=== PATIENT | male | born 1975 | race Caucasian/White ===

== ENCOUNTER 2016-05-28 19:09 | Emergency (ER) | payer BC, OTHER ==
[2016-05-28 19:17] VITALS: BP 115/64; PULSE 71; TEMP 98; BMI 25.1
[2016-05-28] MEDS ORDERED: IBUPROFEN 400 MG TABLET (FP) PO ONE (19:44)
--- NOTE | 2016-05-28 19:45 | PDOC ---
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 Pt was trying to cut a tile with a tilesetter when he cut the distal tip of the right thumb. Td Vaccination: Yes TDAP Vaccination: Yes Immunization Up to Date: Yes <Zaki Salas - Last Filed: 05/28/16 20:01> <Chad Henriquez - Last Filed: 05/29/16 05:40> - General Chief Complaint: Laceration Stated Complaint: CUT RIGHT THUMB WITH NEMATOLOGIST Time Seen by Provider: 05/28/16 19:43 Past History <Zaki Salas - Last Filed: 05/28/16 20:01> - Past Medical History Other medical history: DENIES - Immunization History Td Vaccination: Yes TDAP Vaccination: Yes Immunization Up to Date: Yes - Psycho/Social/Smoking Cessation Hx Anxiety: No Suicidal Ideation: No Smoking Status: No Smoking History: Former smoker Years of Tobacco Use: 10 Have you smoked in the past 12 months: No Number of Cigarettes Smoked Daily: 0 Cigars Per Day: 0 Information on smoking cessation initiated: No 'Breaking Loose' booklet given: 04/07/13 Hx Alcohol Use: No Drug/Substance Use Hx: No Substance Use Type: None <Chad Henriquez - Last Filed: 05/29/16 05:40> - Past Medical History Allergies/Adverse Reactions: Allergies Allergy/AdvReac Type Severity Reaction Status Date / Time No Known Allergies Allergy Verified 05/28/16 19:11 Home Medications: Ambulatory Orders NK [No Known Home Medication] 05/28/16 Review of Systems - Review of Systems Able to Perform ROS?: Yes Comments:: 05/28/16 20:02 GENERAL/CONSTITUTIONAL: No fever or chills. No weakness. HEAD, EYES, EARS, NOSE AND THROAT: No change in vision. No ear pain or discharge. No sore throat. CARDIOVASCULAR: No chest pain or shortness of breath. RESPIRATORY: No cough, wheezing, or hemoptysis. GASTROINTESTINAL: No nausea, vomiting, diarrhea or constipation. GENITOURINARY: No dysuria, frequency, or change in urination. MUSCULOSKELETAL: No joint or muscle swelling or pain. No neck or back pain. SKIN: laceration to distal tip of right thumb. NEUROLOGIC: No headache, vertigo, loss of consciousness, or change in strength/ sensation. ENDOCRINE: No increased thirst. No abnormal weight change. HEMATOLOGIC/LYMPHATIC: No anemia, easy bleeding, or history of blood clots. ALLERGIC/IMMUNOLOGIC: No hives or skin allergy. <Zaki Salas - Last Filed: 05/28/16 20:01> *Physical Exam - Vital Signs Last Vital Signs Temp Pulse Resp BP Pulse Ox 98 F 71 16 115/64 100 05/28/16 19:13 05/28/16 19:13 05/28/16 19:13 05/28/16 19:13 05/28/16 19:13 - Physical Exam Comments: 05/28/16 20:02 GENERAL: Awake, alert, and fully oriented, in no acute distress HEAD: No signs of trauma EYES: PERRLA, EOMI, sclera anicteric, conjunctiva clear ENT: Auricles normal inspection, hearing grossly normal, nares patent, oropharynx clear without exudates. Moist mucosa NECK: Normal ROM, supple, no lymphadenopathy, JVD, or masses LUNGS: Breath sounds equal, clear to auscultation bilaterally. No wheezes, and no crackles HEART: Regular rate and rhythm, normal S1 and S2, no murmurs, rubs or gallops ABDOMEN: Soft, nontender, normoactive bowel sounds. No guarding, no rebound. No masses EXTREMITIES: Normal range of motion, no edema. No clubbing or cyanosis. No cords, erythema, or tenderness NEUROLOGICAL: Cranial nerves II through XII grossly intact. Normal speech, normal gait SKIN: 5 mm laceration to the distal tip of the right thumb. Warm, Dry, normal turgor. <Zaki Salas - Last Filed: 05/28/16 20:01> - Vital Signs Last Vital Signs Temp Pulse Resp BP Pulse Ox 98 F 71 16 115/64 100 05/28/16 19:13 05/28/16 19:13 05/28/16 19:13 05/28/16 19:13 05/28/16 19:13 <Chad Henriquez - Last Filed: 05/29/16 05:40> Medical Decision Making - Medical Decision Making 05/29/16 05:40 wounds anesthetized copius irrigation 2 5-0 sutures placed though unable to achieve complete hemostasis due to missing skin local wound care <Chad Henriquez - Last Filed: 05/29/16 05:40> *DC/Admit/Observation/Transfer - Attestations Scribe Attestion: 05/28/16 20:03 Documentation prepared by Zaki Salas, acting as center medical and lab director for Chad Henriquez MD. <Zaki Salas - Last Filed: 05/28/16 20:01> <Chad Henriquez - Last Filed: 05/29/16 05:40> Diagnosis at time of Disposition: Laceration - Discharge Dispostion Disposition: HOME Condition at time of disposition: Stable - Patient Instructions Printed Discharge Instructions: DI for Laceration Repair Additional Instructions: Stitches out in 7 days
== END 2016-05-28 20:13 | disposition home or self-care (01) ==
LOC: FER 19:09
PROC: 0HQGXZZ Repair Left Hand Skin, External Approach (ICD-10-PCS; principal; 2016-05-28)
DX: S61.011A Laceration without foreign body of right thumb without damage to nail, initial encounter (principal); W26.0XXA Contact with knife, initial encounter; Y93.89 Activity, other specified; Y92.9 Unspecified place or not applicable; Y99.0 Civilian activity done for income or pay; Z87.891 Personal history of nicotine dependence
CPT/HCPCS: 99281-25

== ENCOUNTER 2017-06-18 23:53 | Emergency (ER) | payer OTHER ==
--- NOTE | 2017-06-19 00:40 | PDOC ---
History of Present Illness - General Chief Complaint: Back Pain Stated Complaint: BACK INJURY ([employer]) Time Seen by Provider: 06/19/17 00:27 History Source: Patient Exam Limitations: No Limitations - History of Present Illness Initial Comments: This is a 41 YOM with h/o prior back strain/sprain who presents with work- related back injury. 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 He has moderate sharp and spasming pain since this incident at about 11:30 pm, it is non-radiating, it worsens with movement and walking, and he has not taken any medications for this pain. He otherwise did not fall, run into anything, or otherwise injure himself. He denies numbness, tingling, focal weakness, abdominal pain, chest pain, SOB, neck pain, headache, pain radiating down his leg(s), or other symptoms. He has no medication allergies and will be driving himself home tonight. Past History - Past Medical History Allergies/Adverse Reactions: Allergies Allergy/AdvReac Type Severity Reaction Status Date / Time No Known Allergies Allergy Verified 06/19/17 00:19 Home Medications: Ambulatory Orders Methocarbamol [Robaxin-750] 750 mg PO BID #20 tablet 06/19/17 - Immunization History Td Vaccination: Yes TDAP Vaccination: Yes Immunization Up to Date: Yes - Suicide/Smoking/Psychosocial Hx Smoking Status: No Smoking History: Never smoked Years of Tobacco Use: 10 Have you smoked in the past 12 months: No Number of Cigarettes Smoked Daily: 0 Cigars Per Day: 0 Information on smoking cessation initiated: No 'Breaking Loose' booklet given: 04/07/13 Hx Alcohol Use: No Drug/Substance Use Hx: No Substance Use Type: None Review of Systems - Review of Systems Able to Perform ROS?: Yes Constitutional: No: Chills, Fever, Unexplained wgt Loss HEENTM: No: Nose Congestion, Throat Pain Respiratory: No: Cough, Shortness of Breath Cardiac (ROS): No: Chest Pain, Palpitations ABD/GI: No: Constipated, Diarrhea, Nausea, Vomiting : No: Burning, Dysuria Musculoskeletal: Yes: Back Pain. 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 No: Apparent Distress HEENT: positive: EOMI, BISHOP, Normal ENT Inspection, Normal Voice, Hearing Grossly Normal. negative: Scleral Icterus (R), Scleral Icterus (L), Nasal Congestion Neck: positive: Trachea midline, Supple. negative: Tender, Rigid Respiratory/Chest: positive: Lungs Clear, Normal Breath Sounds. negative: Respiratory Distress, Crackles, Rhonchi, Stridor, Wheezing Cardiovascular: positive: Regular Rhythm, Regular Rate, S1, S2. negative: Edema , JVD, Murmur Gastrointestinal/Abdominal: positive: Soft. negative: Tender, Organomegaly, Pulsatile Mass, Guarding Musculoskeletal: positive: Normal Inspection, Muscle Spasm (right lumbar paraspinous at about the level of L3-5), Other (no stepoff or deformity). negative: CVA Tenderness, Decreased Range of Motion, Vertebral Tenderness Extremity: positive: Normal Capillary Refill, Normal Inspection, Normal Range of Motion. negative: Tender, Cyanosis Integumentary: positive: Normal Color, Dry, Warm. negative: Erythema, Rash, Bruising Neurologic: positive: spring forger II-XII NML intact (grossly), Fully Oriented, Alert, Normal Mood/Affect, Normal Response, Motor Strength 5/5. negative: EOM Palsy, Facial Droop, Numbness, Sensory Deficit, Confused, Disoriented Medical Decision Making - Medical Decision Making Adult male patient p/w work injury related right lower back pain. No red flag symptoms (see HPI). Initial Vital Signs Temp Pulse Resp BP Pulse Ox 97.5 F L 70 19 124/72 98 06/19/17 00:06/19/17 00:15 06/19/17 00:15 06/19/17 00:15 06/19/17 00:15 Exam: Well appearing, comfortable, right lumbar paraspinous ttp and spasm from level L3-5 without midline CTL ttp or stepoff or deformity. DDX IBNLT: muscle strain/sprain, much less likely DDD, DJD, osteophyte, compression fxr, other vertebral or spinous process fxr, etc. W/U ordered: none TX ordered: Robaxin, Tylenol, Motrin Reassessment: Pain much improved per the patient after medications. The patient has gotten significant relief of symptoms with ED medications. They are appropriate for discharge with close outpatient follow up. The patient is comfortable with this plan and will follow up with their PCP in 1 -3 days. They are given a work note to follow up with occupational medicine. Return precautions are discussed and they will come back to the ER if necessary. *DC/Admit/Observation/Transfer Diagnosis at time of Disposition: Work related injury Back strain Qualifiers: Encounter type: initial encounter Qualified Code(s): S39.012A - Strain of muscle, fascia and tendon of lower back, initial encounter - Discharge Dispostion Disposition: HOME Condition at time of disposition: Stable Decision to Admit order: No - Prescriptions Prescriptions: Methocarbamol [Robaxin-750] 750 mg PO BID #20 tablet - Referrals - Patient Instructions Printed Discharge Instructions: DI for Back Strain or Sprain Additional Instructions: You were seen in the ER for an acute flare-up of your chronic back pain. We gave you Robaxin, Tylenol, and Motrin which helped with your pain. We sent a prescription for Robaxin muscle relaxer to your pharmacy, so please pick this up and take as needed. Please follow up with occupational medicine at your department. Please also follow up with your regular PCP doctor in 1-3 days. Call their clinic as soon as possible, tell them you were seen in the ER for back pain, and tell them you need an appointment. If you have any new or worsening symptoms please come back to the ER at any time (24 hours a day), especially for fever, new numbness new tingling new weakness, new urinary or bowel incontinence or retention, or other new symptoms. If you are having severe or life threatening symptoms, or symptoms that make it unsafe to drive or have someone drive you, please call 911. - Post Discharge Activity Forms/Work/School Notes: Back to Work
[2017-06-19] MEDS ORDERED: ACETAMINOPHEN 325 MG TABLET (FP) PO ONE (00:49)
[2017-06-19] MEDS ORDERED: METHOCARBAMOL 500 MG TABLET PO ONE (00:49)
[2017-06-19] MEDS ORDERED: IBUPROFEN 600 MG TABLET (FP) PO ONE ×2 (00:49→01:06)
[2017-06-19 01:02] VITALS: BP 124/72; PULSE 70; TEMP 97.5; BMI 25.1
[2017-06-19] MEDS ORDERED: METHOCARBAMOL 500 MG TABLET ONE (01:06)
[2017-06-19] MEDS ORDERED: ACETAMINOPHEN 325 MG TABLET (FP) ONE (01:06)
--- NOTE | 2017-06-19 01:21 | PDOC ---
Attending Attestation - Resident Resident Name: CelsaCony - ED Attending Attestation I have performed the following: I have examined & evaluated the patient, The case was reviewed & discussed with the resident, I agree w/resident's findings & plan, Exceptions are as noted - HPI HPI: 06/19/17 00:46 41y M [employer], hx of back strain/pain presents with R back pain onset while he was carrying a stretcher nonradiating no numnbess/tingling/weakness no other injuries no fever/chills no urinary/bowel incontinence vitals wnl on exam pt has mild tendereness to palpation on R lower back suspect back spasm, no neuro findings or red flags will give pt supportive care and meds, if improved will dc with pmd fu - Physicial Exam PE: 06/23/17 20:01 see jose luis - Medical Decision Making 06/23/17 20:01 see emi
== END 2017-06-19 01:10 | disposition home or self-care (01) ==
LOC: JER 23:53 → SUPCPDRO 23:53 → JER 06-19 01:10
DX: S39.82XA Other specified injuries of lower back, initial encounter (principal); X50.0XXA Overexertion from strenuous movement or load, initial encounter; Y93.89 Activity, other specified; Y92.89 Other specified places as the place of occurrence of the external cause; Y99.0 Civilian activity done for income or pay
CPT/HCPCS: 99281-25